=== PATIENT | female | born 1950 | race Caucasian/White ===

== ENCOUNTER → 2016-12-30 | Outpatient (CLI) | payer OTHER | LOC: HEART CORB 09:49 | DX: R07.2 Precordial pain (principal); I25.10 Atherosclerotic heart disease of native coronary artery without angina pectoris | CPT/HCPCS: 78452; A9502 ==

== ENCOUNTER 2020-08-12 15:45 | Emergency (ER) | payer OTHER ==
[~2020-08-12 15:45] MED LIST: ALDACTONE25 MG PO; AMLODIPINE BESY10 MG PO; ASPIRIN CHEWABL81 MG PO; ATORVASTATIN CA40 MG PO; CATAPRES0.2 MG PO; CHRONULAC20 GM/30 M PO; FOSAMAX70 MG PO; LASIX20 MG PO; LEVEMIR FL100 UNIT/1 SQ; LEVOTHYROXINE150 MCG PO; LISINOPRIL10 MG PO; LOPRESSOR 25 MG25 MG PO; MULTIVITAMINS1 EAC1 PO; NITROSTAT0.4 MG SL; NORCO 7.5-3251 EACH PO; NORVASC10 MG PO; NOVOLOG FL100 UNIT/1 INJ; NOVOLOG FL100 UNIT/1 SQ; PLAVIX75 MG PO; SYNTHROID112 MCG PO; VITAMIN D31250 MCG PO; ZANTAC PO; ZESTRIL 40 MG T40 MG PO
[2020-08-12 20:20] LABS: HEMOGLOBIN 16.1 gm/dl (12.3-15.3); RED BLOOD COUNT 4.98 M/UL (4.00-5.10)
[2020-08-12 20:41] LABS: BUN/CREATININE RATIO 14 (0-10)
[2020-08-13 04:44] LABS: HEMOGLOBIN 14.3 gm/dl (12.3-15.3); WHITE BLOOD COUNT 4.1 K/UL (4.5-11.0)
[2020-08-13 04:45] LABS: RED BLOOD COUNT 4.45 M/UL (4.00-5.10)
[2020-08-13 05:04] LABS: BUN/CREATININE RATIO 12 (0-10)
[2020-08-13] MEDS ORDERED: LEVOTHYROXINE150 MCG PO (11:04)
[2020-08-13] MEDS ORDERED: CEFUROXIME250 MG PO (11:13)
== END 2020-08-13 13:17 | disposition home or self-care (01) ==
LOC: ER1 15:45 → CDU 22:53 → ER1 22:53
PROVIDERS: Internal Medicine; Physician Assistant
DX: I25.10 Atherosclerotic heart disease of native coronary artery without angina pectoris (principal); I48.0 Paroxysmal atrial fibrillation; N39.0 Urinary tract infection, site not specified; E03.9 Hypothyroidism, unspecified; I73.9 Peripheral vascular disease, unspecified; K74.60 Unspecified cirrhosis of liver; K76.6 Portal hypertension; R16.1 Splenomegaly, not elsewhere classified; E11.9 Type 2 diabetes mellitus without complications; E78.5 Hyperlipidemia, unspecified; Z20.822 Contact with and (suspected) exposure to COVID-19; Z86.718 Personal history of other venous thrombosis and embolism; Z98.61 Coronary angioplasty status; Z95.5 Presence of coronary angioplasty implant and graft; Z90.710 Acquired absence of both cervix and uterus; Z79.02 Long term (current) use of antithrombotics/antiplatelets; Z88.8 Allergy status to other drugs, medicaments and biological substances
CPT/HCPCS: 70450; 71045; 80053; 80061; 81001; 82550; 82553; 83036; 83735; 83874; 83880; 84439; 84443; 84484; 85025; 85379; 85610; 87077; 87086; 87186; 93005; 96365; 96375; 99285; J0696; Q9967; U0002

== ENCOUNTER → 2020-12-14 | Outpatient (CLI) | payer OTHER ==
[~2020-12-14] MED LIST changes: +CEFUROXIME250 MG PO
== END ==
LOC: KOH-I 13:53
DX: S92.351A Displaced fracture of fifth metatarsal bone, right foot, initial encounter for closed fracture (principal)
CPT/HCPCS: 73630

== ENCOUNTER 2021-01-02 21:15 | Emergency (ER) | payer OTHER ==
[2021-01-02 21:52] LABS: HEMOGLOBIN 14.3 gm/dl (12.3-15.3); RED BLOOD COUNT 4.64 M/UL (4.00-5.10); WHITE BLOOD COUNT 7.1 K/UL (4.5-11.0)
[2021-01-02 22:18] LABS: BUN/CREATININE RATIO 37 (0-10)
== END 2021-01-03 00:10 | disposition home or self-care (01) ==
LOC: ER1 21:15
PROVIDERS: Emergency Medicine
DX: U07.1 COVID-19 (principal); J44.9 Chronic obstructive pulmonary disease, unspecified
CPT/HCPCS: 36600; 71045; 80053; 82550; 82553; 82803; 83735; 83874; 83880; 84484; 85025; 93005; 99285; J1642

== ENCOUNTER → 2021-02-01 | Outpatient (CLI) | payer OTHER | LOC: KOH-I 14:22 | DX: S92.351A Displaced fracture of fifth metatarsal bone, right foot, initial encounter for closed fracture (principal); S92.351K Displaced fracture of fifth metatarsal bone, right foot, subsequent encounter for fracture with nonunion | CPT/HCPCS: 73630 ==

== ENCOUNTER → 2021-02-15 | Outpatient (CLI) | payer OTHER | LOC: KOH-I 14:14 | DX: S92.351A Displaced fracture of fifth metatarsal bone, right foot, initial encounter for closed fracture (principal) | CPT/HCPCS: 73630 ==

== ENCOUNTER → 2021-12-03 | Outpatient (CLI) | payer OTHER | LOC: HEART CORB 09:30 | DX: I25.10 Atherosclerotic heart disease of native coronary artery without angina pectoris (principal); R07.89 Other chest pain; I47.2 Ventricular tachycardia | CPT/HCPCS: 78452; A9502 ==